=== PATIENT | male | born 1960 | race Caucasian/White ===

== ENCOUNTER 2019-06-08 10:03 | Emergency (ER) | payer SELFPAY ==
[~2019-06-08] VITALS: Ht 177.8 cm; Wt 86.4 kg
[2019-06-08 10:08] VITALS: Ht 177.8 cm; Wt 86.4 kg
[2019-06-08] MEDS ORDERED: LISINOPRIL-HCT1 EAC4 (10:09)
[2019-06-08 10:32] LABS: BASOPHILS 0.9 % (0-2); EOSINOPHILS 4.6 % (0-7); HEMATOCRIT 48.2 % (42.0-54.0); HEMOGLOBIN 16.5 g/dL (13.5-17.5); LYMPHOCYTES 34.8 % (15-50); MCHC 34.2 g/dL (31.0-37.0); MCV 99.2 fL (80.0-100.0); MEAN PLATELET VOLUME 9.8 fL (7.4-10.4); MONOCYTES 8.6 % (2-11); NEUTROPHILS 51.1 % (40-80); PLATELET COUNT 208 10x3/uL (130-400); RBC 4.86 10x6/uL (4.20-6.10); RDW 12.7 % (11.5-14.5); WBC 5.4 10x3/uL (4.8-10.8)
[2019-06-08 10:50] LABS: CALC OSMOLALITY 281 mosm/kg (275-300); CALCIUM 9.6 mg/dL (8.5-10.1); CARBON DIOXIDE 28.6 mmol/L (21.0-32.0); CHLORIDE - SERUM 103 mmol/L (98-107); CREATININE - SERUM 1.2 mg/dL (0.6-1.3); GLUCOSE 114 mg/dL (74-106); POTASSIUM - SERUM 4.3 mmol/L (3.5-5.1); SODIUM 139 mmol/L (136-145); UREA NITROGEN 20 mg/dL (7-18); eGFR NON AFRICAN AMERICAN 66 mL/min (90-120)
[2019-06-08 11:04] LABS: ALBUMIN 3.7 g/dL (3.4-5.0); ALKALINE PHOSPHATASE 64 U/L (46-116); ALT (SGPT) 30 U/L (10-68); BILIRUBIN - TOTAL 0.55 mg/dL (0.2-1.3); CKMB 1.2 U/L (0.0-3.6); CREATINE KINASE 78 UL (21-232); PRO BNP 64 pg/mL (0-125); PROTEIN - SERUM 7.1 g/dL (6.4-8.2); TROPONIN-I < 0.017 ng/mL (0.000-0.060)
[2019-06-08 12:38] VITALS: BP 135/65
--- NOTE | 2019-06-09 14:08 | CN ---
PATIENT NAME:ISSAC CLEMENS MEDICAL RECORD: [id number] : 58 LOCATION:[facility] ADMIT DATE: ACCOUNT: [id number] CONSULTING PHYSICIAN: HAMMAD BLACKBURN MD REFERRING PHYSICIAN: REYNOLD RIVERS MD DATE OF CONSULTATION: 06/08/2019 ADMITTING DIAGNOSES: 1. Chest pain. 2. Shortness of breath. HISTORY OF PRESENT ILLNESS: Mr. Clemens was driving today. He felt a headache along with his left eye twitching and then became somewhat diaphoretic. He pulled his truck over, called for somebody to come get him. He is not even really sure if he had any discomfort in his chest during that time, if it was, it was minimal. He had some minimal shortness of breath. His symptomatology has resolved at this point. He has no cardiac risk factors other than controlled hypertension, on lisinopril. He has no family history of coronary artery disease. No smoking history. No hyperlipidemia. EKG is normal. His troponins are normal. PHYSICAL EXAMINATION: CONSTITUTIONAL/GENERAL APPEARANCE: Well nourished, well developed, appears stated age. EYES: Lids and conjunctivae noninjected. No discharge. No pallor. ENT: Lips within normal limit. No cyanosis. No pallor. NECK: Carotid arteries, bilateral normal upstroke. No bruits. No thrills. No jugular venous pressure or distention. CERVICAL LYMPH NODES: Nontender. Nonenlarged. THYROID: Not enlarged. No nodules. CARDIOVASCULAR: Precordial exam, nondisplaced. No heaves or pericardial thrills. Rate and rhythm, regular. Heart sounds, normal S1, normal S2. No S3, no gallop, no rub. Systolic murmur, not heard. Diastolic murmur, not heard. RESPIRATORY: Respiratory effort, unlabored. Normal curvature. No thoracic deformity. No chest wall tenderness. Percussion, resonant. Auscultation, clear. No wheezes, no rales, no rhonchi. ABDOMEN: Soft, nondistended, nontender. No abdominal pain, no vomiting and normal appetite. MUSCULOSKELETAL: No joint tenderness, normal gait, normal tone. SKIN: Warm and dry. REVIEW OF SYSTEMS: The patient reports easy bruising but reports no swollen glands. The patient reports no fever, no night sweats, no significant weight gain, no significant weight loss. No significant exercise tolerance. The patient reports no dry eyes, no irritation, no vision change. Patient reports no difficulty hearing and no ear pain. Patient reports no frequent nose bleeds or nose and sinus problems. Patient reports on arm pain on exertion. No shortness of breath while lying down. No history of heart murmur. Patient reports no cough, no wheezing or coughing up blood. Patient reports no abdominal pain, no vomiting. Normal appetite. No diarrhea and not vomiting blood. No nausea and no constipation. Patient reports no incontinence. No difficulty urinating. No hematuria. No increased frequency. Patient reports no muscle aches. No weakness, no arthralgias, no back pain. No swelling of the extremities. Patient reports no abnormal mole, no jaundice, no rashes. Reports no loss of consciousness. No weakness and no numbness. No seizures, dizziness, CONSULT REPORT [id number] ISSAC CLEMENS or headaches. The patient reports no depression, no sleep disturbance, feeling safe in a relationship and no alcohol abuse. Patient reports on fatigue. Reports no runny nose or sinus pressure. No itching, no hives, and no frequent sneezing. FAMILY HISTORY: Positive for hypertension. Negative for coronary artery disease. SOCIAL HISTORY: Nonsmoker, nondrinker, works for [employer]. OVERALL IMPRESSION: Difficult to say what his symptomatology is secondary to it centers more of his symptomatology on his headache and his eye twitching. If he had any chest pain, it was minimal, shortness of breath as well was minimal. At this time, no other cardiac workup or treatment is necessary. If he has recurrent symptomatology, he will have our contact information and will contact us. TRANSINT:[id number] Voice Confirmation ID: [id number] DOCUMENT ID: [id number] HAMMAD BLACKBURN MD at 1408 CC: [id number] DICTATION DATE: 06/08/19 1200 WET MIXER: 06/08/19 1215 DEP ER 06/08/19 [place] [id number] [place] [id number]
== END 2019-06-08 12:38 | disposition home or self-care (01) ==
LOC: D.ER 10:03
PROVIDERS: Emergency Medicine
DX: R07.9 Chest pain, unspecified (principal); R51 Headache